=== PATIENT | female | born 1970 | race Caucasian/White ===

== ENCOUNTER 2018-10-17 20:14 | Emergency (ER) | payer MEDICAID ==
[~2018-10-17] VITALS: Ht 149.9 cm; Wt 95.3 kg
[2018-10-17 20:18] VITALS: BP_SYST 151
--- NOTE | 2018-10-17 20:22 | NUR ---
Patient to ER bed 03 to gown for evaluation. Side rails up.
--- NOTE | 2018-10-17 20:25 | NUR ---
Pt AAOX4, VSS with no shortness of breath, no fever noted, came with a complaint of right pinky laceration. Safety precaution observed, will continue to monitor Pt.
--- NOTE | 2018-10-17 20:26 | NUR ---
ER MD Mccollum at bedside for medical evaluation.
[2018-10-17] MEDS ORDERED: DIPH-TET-PERTUS Vaccine 0.5 ML VIAL (ADACEL) I.M. ONE ×2 (21:00→22:30)
--- NOTE | 2018-10-17 21:10 | NUR ---
MD at bedside doing suture.
[2018-10-17] MEDS ORDERED: BUPIVACAINE /PF 0.25% 30 ML VIAL INJ ONE (21:30)
[2018-10-17 23:20] VITALS: BP_SYST 115
--- NOTE | 2018-10-17 23:20 | NUR ---
Patient given written and verbal discharge instructions and verbalizes understanding. ER MD Mccollum discussed with patient the results and treatment provided. Patient in stable condition. ID arm band removed. Patient educated on pain management and to follow up with PMD. Pain Scale 0/10. Opportunity for questions provided and answered. Medication side effect fact sheet provided.
== END 2018-10-17 23:20 | disposition home or self-care (01) ==
LOC: SED 20:14
DX: S61.216A Laceration without foreign body of right little finger without damage to nail, initial encounter (principal); R03.0 Elevated blood-pressure reading, without diagnosis of hypertension; W25.XXXA Contact with sharp glass, initial encounter; Y93.89 Activity, other specified; Y92.89 Other specified places as the place of occurrence of the external cause; Y99.8 Other external cause status
CPT/HCPCS: 12001; 73140; 90471; 90715; 99283; J3490

== ENCOUNTER 2018-10-19 18:10 | Emergency (ER) | payer MEDICAID ==
[~2018-10-19] VITALS: Ht 149.9 cm; Wt 90.7 kg
[2018-10-19 18:15] VITALS: BP_SYST 142
[2018-10-19 19:30] VITALS: BP_SYST 138
== END 2018-10-19 19:30 | disposition home or self-care (01) ==
LOC: SED 18:10
DX: Z09 Encounter for follow-up examination after completed treatment for conditions other than malignant neoplasm (principal); R03.0 Elevated blood-pressure reading, without diagnosis of hypertension; Z87.828 Personal history of other (healed) physical injury and trauma
CPT/HCPCS: 99283

== ENCOUNTER 2018-10-24 10:02 | Emergency (ER) | payer MEDICAID ==
[~2018-10-24] VITALS: Ht 149.9 cm; Wt 81.6 kg
[2018-10-24 10:04] VITALS: BP_SYST 122
[2018-10-24 10:51] VITALS: BP_SYST 121
== END 2018-10-24 10:57 | disposition home or self-care (01) ==
LOC: SED 10:02
DX: S61.216D Laceration without foreign body of right little finger without damage to nail, subsequent encounter (principal); W25.XXXD Contact with sharp glass, subsequent encounter
CPT/HCPCS: 99282

== ENCOUNTER 2019-11-18 22:11 | Emergency (ER) | payer OTHER, MEDICAID ==
[~2019-11-18] VITALS: Ht 149.9 cm; Wt 81.6 kg
[2019-11-18 22:30] VITALS: BP_SYST 140
[2019-11-19 01:40] LABS: BASOPHILS % (AUTO) 0.5 % (0.0-2.0); EOSINOPHILS # (AUTO) 0.2 K/uL (0.0-0.4); EOSINOPHILS % (AUTO) 2.5 % (0.0-4.0); HEMATOCRIT 36.6 % (36-48); HEMOGLOBIN 12.4 g/dL (12.0-16.0); LYMPHOCYTES % (AUTO) 41.9 % (20.5-51.5); MEAN CORPUSCULAR HEMOGLOBIN 30 pg (27-31); MEAN CORPUSCULAR HGB CONC 34 % (32-36); MEAN CORPUSCULAR VOLUME 89 fL (79.0-98.0); MONOCYTES # (AUTO) 0.3 K/uL (0.0-1.0); MONOCYTES % (AUTO) 3.8 % (1.7-9.3); NEUTROPHILS # (AUTO) 3.7 K/uL (1.8-7.7); NEUTROPHILS % (AUTO) 51.3 % (40.0-70.0); PLATELET COUNT (AUTO) 181 K/uL (130-430); RED BLOOD CELL COUNT(AUTO) 4.14 MIL/uL (4.2-6.2); RED CELL DISTRIBUTION WIDTH 14.4 % (9.0-15.0); WHITE BLOOD COUNT (AUTO) 7.2 K/uL (4.8-10.8)
[2019-11-19 02:38] VITALS: BP_SYST 140
== END 2019-11-19 02:38 | disposition home or self-care (01) ==
LOC: SED 22:11
DX: S09.90XA Unspecified injury of head, initial encounter (principal); V59.9XXA Occupant (driver) (passenger) of pick-up truck or van injured in unspecified traffic accident, initial encounter; Y93.89 Activity, other specified; Y92.89 Other specified places as the place of occurrence of the external cause; Y99.8 Other external cause status
CPT/HCPCS: 36415; 70450; 85025; 99284; G0480